=== PATIENT | female | born 1970 | race Two or more races ===

== ENCOUNTER 2020-02-12 15:31 | Emergency (ER) | payer MEDICAID ==
[~2020-02-12] VITALS: Ht 167.6 cm; Wt 53.5 kg
[2020-02-12] MEDS ORDERED: ONDANSETRON HCL/PF 4 MG/2 ML VIAL ONE (16:15)
[2020-02-12] MEDS ORDERED: MORPHINE SULFATE INJ 2 MG/ML DISP.SYRIN ONE (16:15)
[2020-02-12] MEDS ORDERED: FAMOTIDINE/PF INJ 20 MG/2 ML VIAL IV ONE (16:16)
[2020-02-12] MEDS: IV NS 0.9% 1,000 ML BAG IV ONE (16:28)
[2020-02-12] MEDS: FAMOTIDINE/PF INJ 20 MG/2 ML VIAL IV ONE (16:28)
[2020-02-12] MEDS: MORPHINE SULFATE INJ 2 MG/ML DISP.SYRIN IV ONE (16:28)
[2020-02-12] MEDS: ONDANSETRON HCL/PF 4 MG/2 ML VIAL IVP ONE (16:28)
--- NOTE | 2020-02-12 16:32 | NUR ---
PT BIB [facility] C/O DIARRHEA AND VOMITING "THAT JUST WONT STOP" X1 DAY, PT STATES SHE NEEDS SURGERY BUT HAS BEEN UNABLE TO COORDINATE CARE. REPORTS PROLAPSED RECTUM. DENIES BLOOD IN STOOL OR VOMIT. REPORTS ABD PAIN BUT UNABLE TO LOCALIZE. ENDORSES HX OF SCABIES AND FEELS "LIKE SOMETIMES THINGS ARE CRAWLING" BUT DENIES ITCHING OR RASH.
[2020-02-12 16:36] LABS: BASOPHILS % (AUTO) 0.8 % (0.0-2.0); EOSINOPHILS % (AUTO) 0.5 % (0.0-6.0); HEMATOCRIT 34 % (33-45); HEMOGLOBIN 10.4 g/dL (11.5-14.8); LYMPHOCYTES # (AUTO) 1.6 /CMM (0.8-4.8); LYMPHOCYTES % (AUTO) 31.1 % (20.0-44.0); MEAN CORPUSCULAR HGB CONC 31 g/dl (31.0-36.0); MEAN CORPUSCULAR VOLUME 67 fL (82-100); MONOCYTES # (AUTO) 0.3 /CMM (0.1-1.30); MONOCYTES % (AUTO) 4.7 % (2.0-12.0); NEUTROPHILS # (AUTO) 3.3 /CMM (1.8-8.9); NEUTROPHILS % (AUTO) 62.9 % (43.0-81.0); PLATELET COUNT (AUTO) 336 /CMM (150-450); RED BLOOD CELL COUNT(AUTO) 5.01 MIL/uL (4.0-5.2); WHITE BLOOD COUNT (AUTO) 5.3 K/uL (4.3-11.0)
[2020-02-12 17:08] LABS: ALBUMIN 3.7 g/dL (3.4-5.0); BILIRUBIN,DIRECT 0.1 mg/dL (0.0-0.2); BILIRUBIN,TOTAL 0.4 mg/dL (0.2-1.0); CALCIUM, SERUM 8.9 mg/dL (8.5-10.1); CREATININE 0.9 mg/dL (0.6-1.3); POTASSIUM 3.7 mmol/L (3.5-5.1); TOTAL PROTEIN, SERUM 7.2 g/dL (6.4-8.2)
[2020-02-12] MEDS ORDERED: diphenhydrAMINE HCL 25 MG CAPSULE ONE (17:55)
[2020-02-12] MEDS: diphenhydrAMINE HCL 50 MG CAPSULE PO ONE (18:22)
[2020-02-12 18:27] VITALS: BP 100/66
--- NOTE | 2020-02-12 18:40 | NUR ---
IV removed. Catheter intact and site benign. Pressure and 4x4 applied to site. No bleeding noted. Patient discharged in stable condition. Written and verbal after care instructions given. Patient verbalizes understanding of instruction. Patient provided with tap card. Patient signed homeless discharge waiver.
--- NOTE | 2020-02-13 10:27 | NUR ---
Patient wants to return to [facility] [address] . Patient was provided with clothes and food. Patient has a TAP Card.
--- NOTE | 2020-02-13 10:37 | NUR ---
Mother Delphine spoke with the patient about leaving [facility] and taking bus back to the group home. Patient in agreement with this.
== END 2020-02-12 18:46 | disposition home or self-care (01) ==
LOC: ER 15:36
DX: R19.7 Diarrhea, unspecified (principal); R11.10 Vomiting, unspecified; R10.13 Epigastric pain; D50.9 Iron deficiency anemia, unspecified; Z59.0 Homelessness
CPT/HCPCS: 36415; 80048; 80076; 83690; 85025; 96361; 96374; 96375; 99284; J2270; J2405; J3490; J7030; Q0163